=== PATIENT | female | born 1980 | race Two or more races ===

== ENCOUNTER → 2020-07-14 | Outpatient (CLI) | payer OTHER | END | disposition home or self-care (01) | LOC: PRENATAL 14:58 | PROVIDERS: ATTEND Obstetrics & Gynecology Maternal & Fetal Medicine | DX: O99.891 Other specified diseases and conditions complicating pregnancy (principal); O36.80X1 Pregnancy with inconclusive fetal viability, fetus 1; Z36.89 Encounter for other specified antenatal screening; Z3A.13 13 weeks gestation of pregnancy ==

== ENCOUNTER 2021-04-27 16:17 | Emergency (ER) | payer OTHER ==
[~2021-04-27] VITALS: Ht 167.6 cm; Wt 83.0 kg
[2021-04-27] MEDS ORDERED: PROBIOTIC1 EAC2 PO (16:59)
[2021-04-27] MEDS ORDERED: PEPCID AC20 MG PO (16:59)
[2021-04-27] MEDS ORDERED: AMOX-CLAV 875-1 EACH PO (16:59)
== END 2021-04-27 17:29 | disposition home or self-care (01) ==
LOC: ER 16:17
DX: N61.0 Mastitis without abscess (principal)

== ENCOUNTER 2023-04-21 13:12 | Outpatient (CLI) | payer OTHER ==
[~2023-04-21 13:12] MED LIST: AMOX-CLAV 875-1 EACH PO; PEPCID AC20 MG PO; PROBIOTIC1 EAC2 PO
== END 2023-04-21 16:40 | disposition home or self-care (01) ==
LOC: PRENATAL 13:12
PROVIDERS: ATTEND Obstetrics & Gynecology Maternal & Fetal Medicine
DX: O26.849 Uterine size-date discrepancy, unspecified trimester (principal); O09.529 Supervision of elderly multigravida, unspecified trimester; Z36.0 Encounter for antenatal screening for chromosomal anomalies; Z3A.17 17 weeks gestation of pregnancy

== ENCOUNTER 2023-05-12 09:40 | Outpatient (CLI) | payer OTHER | END 2023-05-12 09:41 | disposition home or self-care (01) | LOC: PRENATAL 09:40 | PROVIDERS: ATTEND Obstetrics & Gynecology Maternal & Fetal Medicine | DX: O35.3XX0 Maternal care for (suspected) damage to fetus from viral disease in mother, not applicable or unspecified (principal); O44.00 Complete placenta previa NOS or without hemorrhage, unspecified trimester; O09.529 Supervision of elderly multigravida, unspecified trimester; Z3A.20 20 weeks gestation of pregnancy ==

== ENCOUNTER 2023-08-04 09:17 | Outpatient (CLI) | payer OTHER | END 2023-08-04 09:19 | disposition home or self-care (01) | LOC: PRENATAL 09:17 | PROVIDERS: ATTEND Obstetrics & Gynecology Maternal & Fetal Medicine | DX: O26.849 Uterine size-date discrepancy, unspecified trimester (principal); O36.8199 Decreased fetal movements, unspecified trimester, other fetus; O09.529 Supervision of elderly multigravida, unspecified trimester; Z3A.32 32 weeks gestation of pregnancy ==

== ENCOUNTER 2023-08-22 00:18 | Inpatient (IN) | payer OTHER ==
[~2023-08-22] VITALS: Ht 167.6 cm; Wt 90.7 kg
[2023-08-22] MEDS ORDERED: PRENATAL TABLE1 EAC1 PO (00:23)
[2023-08-22] MEDS ORDERED: TERBUTALINE SULFATE 1 MG/ML AMPUL SUBCUTANEO ONE (00:30)
[2023-08-22] MEDS ORDERED: BETAMETHASONE ACETATE,SOD PHOS 30 MG/5 ML ML IM ONE (00:35)
[2023-08-22] MEDS ORDERED: BETAMETHASONE ACETATE,SOD PHOS 30 MG/5 ML ML ONE (00:39)
[2023-08-22] MEDS ORDERED: RINGERS SOLUTION,LACTATED 1,000 ML IV SCH (01:00)
[2023-08-22 01:43] LABS: URINE APPEARANCE Clear; URINE BILIRRUBIN Negative (NEGATIVE); URINE BLOOD Negative; URINE COLOR Yellow; URINE GLUCOSE Negative (NEGATIVE); URINE LEUKOCYTE Negative; URINE NITRATE Negative; URINE PROTEIN Negative (NEGATIVE); URINE UROBILINOGEN 0.2 E.U./dl
[2023-08-22 01:46] LABS: HEMATOCRIT 33.3 % (36.0-45.00); HEMOGLOBIN 10.6 g/dL (12.0-15.00); MEAN CELL VOLUME 71.9 fL (80.00-100.00); MEAN CORPUSCULAR HEMOGLOBIN 22.8 pg (27.00-32.0); MEAN CORPUSCULAR HGB CONC 31.7 g/dl (32.0-36.0); PLATELET COUNT 217 K/uL (150-450); RED BLOOD COUNT 4.63 M/uL (4.00-6.00); RED CELL DISTRIBUTION WIDTH 15.2 % (11.5-14.5); URINE BACTERIA 902.1 uL (0.0-1933); URINE EPITHELIAL CELLS 30.2 uL (0.0-38.8); URINE WBC 26.4 uL (0.0-23.2)
[2023-08-22 01:47] LABS: URINE RBC 1.8 uL (0.0-20.8)
[2023-08-22] MEDS ORDERED: NIFEDIPINE 20 MG CAPSULE PO STA (12:29)
[2023-08-22] MEDS ORDERED: NIFEDIPINE 10 MG CAPSULE PO PRN (12:30)
[2023-08-22] MEDS ORDERED: AMPICILLIN SODIUM 2,000 MG in 0.9 % SODIUM CHLORIDE 100 ML IV SCH (15:03)
[2023-08-22] MEDS ORDERED: NIFEDIPINE 10 MG CAPSULE PO ONE (15:15)
[2023-08-22] MEDS ORDERED: ERYTHROMYCIN BASE 1 GM TUBE OP ONE (15:57)
[2023-08-22] MEDS ORDERED: CHLORHEXIDINE GLUCONATE 120 ML BOTTLE TOP ONE (15:57)
[2023-08-22] MEDS ORDERED: CHLORHEXIDINE GLUCONATE 120 ML BOTTLE TOP SCH (16:30)
[2023-08-22] MEDS ORDERED: ACETAMINOPHEN 500 MG GEL..CAP PO PRN (16:30)
[2023-08-22] MEDS ORDERED: LIDOCAINE HCL 1% 200MG/20ML VIAL IJ SCH (16:30)
[2023-08-22] MEDS ORDERED: OXYTOCIN 1,000 ML IV SCH (16:30)
[2023-08-22] MEDS ORDERED: ERYTHROMYCIN BASE 1 GM TUBE OP SCH (16:30)
[2023-08-22] MEDS ORDERED: METHYLERGONOVINE MALEATE 0.2 MG/ML AMPUL ONE (17:05)
[2023-08-22 21:40] LABS: HEMATOCRIT 35.5 % (36.0-45.00); HEMOGLOBIN 11.3 g/dL (12.0-15.00); MEAN CELL VOLUME 71.4 fL (80.00-100.00); MEAN CORPUSCULAR HEMOGLOBIN 22.7 pg (27.00-32.0); MEAN CORPUSCULAR HGB CONC 31.8 g/dl (32.0-36.0); PLATELET COUNT 213 K/uL (150-450); RED BLOOD COUNT 4.98 M/uL (4.00-6.00); RED CELL DISTRIBUTION WIDTH 15.3 % (11.5-14.5)
[2023-08-23] MEDS ORDERED: BETAMETHASONE ACETATE,SOD PHOS 30 MG/5 ML ML IM ONE (00:45)
[2023-08-23] MEDS ORDERED: PNV,CALCIUM 72/IRON/FOLIC ACID 1 TAB TABLET PO SCH (09:00)
== END 2023-08-24 18:09 | disposition home or self-care (01) | DRG 805 ==
LOC: OBS/DEL 00:18 → LDR 12:33 → OB/GYN 12:33
PROVIDERS: ADMIT Obstetrics & Gynecology; ATTEND Obstetrics & Gynecology
PROC: 10E0XZZ Delivery of Products of Conception, External Approach (ICD-10-PCS; principal; 2023-08-22)
PROC: 0KQM0ZZ Repair Perineum Muscle, Open Approach (ICD-10-PCS; 2023-08-22)
PROC: 0UQG7ZZ Repair Vagina, Via Natural or Artificial Opening (ICD-10-PCS; 2023-08-22)
PROC: 4A1HXCZ Monitoring of Products of Conception, Cardiac Rate, External Approach (ICD-10-PCS; 2023-08-22)
PROC: BY4FZZZ Ultrasonography of Third Trimester, Single Fetus (ICD-10-PCS; 2023-08-22)
PROC: BU4CZZZ Ultrasonography of Uterus and Ovaries (ICD-10-PCS; 2023-08-22)
DX: O71.4 Obstetric high vaginal laceration alone (principal); O60.14X0 Preterm labor third trimester with preterm delivery third trimester, not applicable or unspecified; Z37.0 Single live birth; O26.843 Uterine size-date discrepancy, third trimester; O26.853 Spotting complicating pregnancy, third trimester; O36.8130 Decreased fetal movements, third trimester, not applicable or unspecified; Z3A.34 34 weeks gestation of pregnancy; Z20.822 Contact with and (suspected) exposure to COVID-19